=== PATIENT | male | born 1990 | race Caucasian/White ===

== ENCOUNTER 2021-02-04 14:54 | Emergency (ER) | payer SELFPAY ==
[~2021-02-04] VITALS: Ht 172.7 cm; Wt 72.6 kg
[2021-02-04 16:13] VITALS: BP 161/82
[2021-02-04] MEDS ORDERED: MIDAZOLAM HCL 5 MG/ML-1ML VIAL IV ONE (17:15)
[2021-02-04] MEDS ORDERED: HYDROmorphone HCL 2 MG/ML VL IV ONE (17:15)
[2021-02-04] MEDS ORDERED: ETOMIDATE (2MG/ML) 20ML VIAL IV ONE (17:15)
== END 2021-02-04 19:15 | disposition home or self-care (01) ==
LOC: ER 14:54
DX: S43.004A Unspecified dislocation of right shoulder joint, initial encounter (principal); I10 Essential (primary) hypertension; W19.XXXA Unspecified fall, initial encounter; Y93.89 Activity, other specified; Y92.89 Other specified places as the place of occurrence of the external cause; Y99.8 Other external cause status
CPT/HCPCS: 23650; 73030; 96374; 99285; J1170; J2250